=== PATIENT | male | born 1965 | race Hispanic/Latino ===

== ENCOUNTER → 2025-01-03 | Day surgery (SDC) | payer BC ==
[2025-01-02 15:21] LABS: BASOPHILS % 0.6 % (0.0-1.0); EOSINOPHILS # (AUTO) 0.2 (0.0-0.4); EOSINOPHILS % 3.2 % (0.0-6.0); HEMOGLOBIN 14.3 g/dL (14.0-18.0); LYMPHOCYTES # (AUTO) 1.6 (1.0-3.2); LYMPHOCYTES % 29.6 % (18.0-39.1); MEAN CORPUSCULAR HEMOGLOBIN 31.2 pg (28-32); MEAN CORPUSCULAR HGB CONC 34.9 g/dL (31-35); MEAN CORPUSCULAR VOLUME 89.3 fL (81-99); MONOCYTES # (AUTO) 0.5 (0.2-0.8); MONOCYTES % 9.5 % (4.4-11.3); NEUTROPHILS % 56.9 % (38.7-80.0); PLATELET COUNT 159 x10e3/uL (140-360); RED BLOOD COUNT 4.59 x10e6/uL (4.3-5.7); RED CELL DISTRIBUTION WIDTH 12.3 % (11.7-14.4); WHITE BLOOD COUNT 5.24 x10e3/uL (4.8-10.8)
[~2025-01-03] MED LIST: ACETAMINOPHEN 1000 MG/100 ML IV PRN; ASPIRIN 325 MG TAB PO SCH; ASPIRIN81 MG PO; CELECOXIB 100 MG CAP PO SCH; CRESTOR40 MG PO; DICLOFENAC PO; DIPHENHYDRAMINE HCL INJ 50 MG/ML VIAL IV PRN; DOCUSATE SODIUM 100 MG CAP PO PRN; EPHEDRINE SULFATE INJ 50 MG/ML VIAL ONE; FENTANYL CITRATE/PF 100MCG/2 ML INJ ONE; HYDROCODONE/APAP 5MG-325MG TAB PO PRN; LIDOCAINE HCL 2% LOCAL INJ 5 ML SDV VIAL INJ ONE; LOSARTAN POTASS25 MG PO; ONDANSETRON HCL INJ 2MG/ML 2ML 2 MG/ML VIAL IV PRN; ONDANSETRON HCL INJ 2MG/ML 2ML 2 MG/ML VIAL ONE; PROPOFOL IV EMULSION 10 MG/ML 20 ML VIAL ONE; ROPIVACAINE/EPI/CLONIDINE/KET 50 ML SYRINGE INJ ONE; SODIUM CHLORIDE 0.9% 1000ML 1,000 ML IV SCH
[2025-01-03] MEDS: LACTATED RINGER'S 1,000 ML ONE (07:53)
[2025-01-03] MEDS: DEXAMETHASONE SOD PHOS 10 MG/1 ML VIAL ONE (07:53)
[2025-01-03] MEDS: GABAPENTIN 300 MG CAP ONE (07:54)
[2025-01-03] MEDS: CELECOXIB 200 MG CAP ONE (07:54)
[2025-01-03] MEDS: CEFAZOLIN SODIUM 2 GM ONE (07:54)
[2025-01-03 11:51] VITALS: TEMP 97.4
[2025-01-03] MEDS: FENTANYL CITRATE/PF 100MCG/2 ML INJ ONE (12:16)
[2025-01-03] MEDS: HYDROCODONE/APAP 7.5MG-325MG 1 EA TAB PO PRN (12:20)
[2025-01-03 13:40] VITALS: BP 142/82; PULSE 75; RESP 18; O2SAT 99
== END | disposition home health service (06) ==
LOC: OR 06:25
PROVIDERS: ATTEND Specialist
DX: M17.12 Unilateral primary osteoarthritis, left knee (principal); M06.9 Rheumatoid arthritis, unspecified; I10 Essential (primary) hypertension; E78.00 Pure hypercholesterolemia, unspecified; E66.01 Morbid (severe) obesity due to excess calories; I44.0 Atrioventricular block, first degree; R00.1 Bradycardia, unspecified; Z01.812 Encounter for preprocedural laboratory examination; Z79.82 Long term (current) use of aspirin; Z79.899 Other long term (current) drug therapy
CPT/HCPCS: 27447; 36415; 73560; 85025; 86850; 86900; 97110; 97116; 97161; C1713 ×2; C1776 ×3; J1100; J2003; J2405; J2704; J3010; J7121

== ENCOUNTER 2025-01-06 19:26 | Emergency (ER) | payer BC ==
[~2025-01-06] VITALS: Ht 167.6 cm; Wt 99.8 kg
[~2025-01-06 19:26] MED LIST changes: -ACETAMINOPHEN 1000 MG/100 ML IV PRN; -ASPIRIN 325 MG TAB PO SCH; -CELECOXIB 100 MG CAP PO SCH; -DIPHENHYDRAMINE HCL INJ 50 MG/ML VIAL IV PRN; -DOCUSATE SODIUM 100 MG CAP PO PRN; -EPHEDRINE SULFATE INJ 50 MG/ML VIAL ONE; -FENTANYL CITRATE/PF 100MCG/2 ML INJ ONE; -HYDROCODONE/APAP 5MG-325MG TAB PO PRN; -LIDOCAINE HCL 2% LOCAL INJ 5 ML SDV VIAL INJ ONE; -ONDANSETRON HCL INJ 2MG/ML 2ML 2 MG/ML VIAL IV PRN; -ONDANSETRON HCL INJ 2MG/ML 2ML 2 MG/ML VIAL ONE; -PROPOFOL IV EMULSION 10 MG/ML 20 ML VIAL ONE; -ROPIVACAINE/EPI/CLONIDINE/KET 50 ML SYRINGE INJ ONE; -SODIUM CHLORIDE 0.9% 1000ML 1,000 ML IV SCH
[2025-01-06 20:30] VITALS: PULSE 60; RESP 18; TEMP 98.3
[2025-01-06 21:06] LABS: BASOPHILS % 0.4 % (0.0-1.0); EOSINOPHILS # (AUTO) 0.3 (0.0-0.4); EOSINOPHILS % 3.5 % (0.0-6.0); HEMATOCRIT 32.1 % (38.2-49.6); HEMOGLOBIN 11.2 g/dL (14.0-18.0); LYMPHOCYTES # (AUTO) 2.4 (1.0-3.2); MEAN CORPUSCULAR HEMOGLOBIN 31.3 pg (28-32); MEAN CORPUSCULAR HGB CONC 34.9 g/dL (31-35); MEAN CORPUSCULAR VOLUME 89.7 fL (81-99); MONOCYTES # (AUTO) 0.6 (0.2-0.8); MONOCYTES % 6.4 % (4.4-11.3); NEUTROPHILS # (AUTO) 5.9 (2.1-6.9); NEUTROPHILS % 63.3 % (38.7-80.0); PLATELET COUNT 195 x10e3/uL (140-360); RED BLOOD COUNT 3.58 x10e6/uL (4.3-5.7); RED CELL DISTRIBUTION WIDTH 12.4 % (11.7-14.4); WHITE BLOOD COUNT 9.31 x10e3/uL (4.8-10.8)
[2025-01-06 21:21] LABS: INR 0.94; PROTHROMBIN TIME 13.1 seconds (11.9-14.5)
[2025-01-06 21:22] LABS: PARTIAL THROMBOPLASTIN TIME 46.8 seconds (23.8-35.5)
[2025-01-06 21:36] LABS: ANION GAP 14.6 mmol/L (8-16); CREATININE, SERUM 1.05 mg/dL (0.72-1.25); POTASSIUM 3.6 mmol/L (3.5-5.1)
[2025-01-06 22:23] VITALS: BP 118/71; O2SAT 100
== END 2025-01-06 22:27 | disposition home or self-care (01) ==
LOC: ER 20:55
DX: M96.830 Postprocedural hemorrhage of a musculoskeletal structure following a musculoskeletal system procedure (principal); I10 Essential (primary) hypertension; E78.5 Hyperlipidemia, unspecified
CPT/HCPCS: 36415; 80048; 85025; 85610; 85730; 99283